=== PATIENT | male | born 1955 | race Caucasian/White ===

== ENCOUNTER 2018-07-15 09:46 | Emergency (ER) | payer MEDICARE ==
[2018-07-15 10:03] VITALS: BP 132/98
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
== END 2018-07-15 11:59 | disposition home or self-care (01) ==
LOC: UCEAST 09:46
DX: S52.552A Other extraarticular fracture of lower end of left radius, initial encounter for closed fracture (principal); S52.615A Nondisplaced fracture of left ulna styloid process, initial encounter for closed fracture; W00.0XXA Fall on same level due to ice and snow, initial encounter; Y92.9 Unspecified place or not applicable
CPT/HCPCS: 99201; G0463